=== PATIENT | male | born 1940 | race African-American/Black ===

== ENCOUNTER 2017-03-09 06:45 | Emergency (ER) | payer OTHER ==
[~2017-03-09] VITALS: Ht 188 cm; Wt 86.2 kg
[~2017-03-09 06:45] MED LIST: ADULT LOW DOSE81 MG PO; ATENOLOL 25 MG25 M1 PO; BETAPACE PO; CARVEDILOL3.125 MG PO; CARVEDILOL6.25 MG PO; COUMADIN7.5 MG PO; COZAAR; COZAAR 25 MG TA25 MG PO; DOXYCYCLINE 10100 MG PO; FLECAINIDE ACET50 M1 PO; FUROSEMIDE 40 M40 M1 PO; K-DUR10 ME1 PO; MULTIVITAMINS PO; PACERONE 200 M200 M1 PO; POTASSIUM20 PO; SOTALOL120 MG PO; TOPROL XL25 MG PO; UNKNOWN MED PO
[2017-03-09] MEDS ORDERED: COUMADIN 5 MG TA5 M1 PO (07:04)
[2017-03-09 08:24] LABS: HEMATOCRIT 37.1 % (42.0-52.0); HEMOGLOBIN 12.4 gm/dL (14.0-18.0); MCH 28.7 pg (26.0-34.0); MCHC 33.4 g/dL (28.0-37.0); PLATELET COUNT 115 thou/uL (150-400); RBC 4.32 mil/uL (4.50-6.00); RDW 14.4 % (10.5-14.5); WBC 4.9 thou/uL (4.0-11.0)
[2017-03-09 08:35] LABS: CALCIUM 9.3 mg/dL (8.5-10.1); CREATININE 1.3 mg/dL (0.7-1.3); POTASSIUM 4.1 mmol/L (3.5-5.1)
[2017-03-09 08:38] LABS: INR 3.5; PROTIME 34.8 Seconds (9.3-11.4)
[2017-03-09 09:05] LABS: ABSOLUTE NEUTROPHILS 3.7 thou/uL (1.4-8.2)
[2017-03-09 09:56] VITALS: BP 127/64
== END 2017-03-09 10:03 | disposition home or self-care (01) ==
LOC: ER 06:45
PROVIDERS: Emergency Medicine
DX: R04.0 Epistaxis (principal); M19.90 Unspecified osteoarthritis, unspecified site; I48.91 Unspecified atrial fibrillation; G47.30 Sleep apnea, unspecified; Z88.0 Allergy status to penicillin; Z87.891 Personal history of nicotine dependence

== ENCOUNTER 2017-04-02 18:41 | Emergency (ER) | payer OTHER ==
[~2017-04-02] VITALS: Ht 188 cm; Wt 90.3 kg
[~2017-04-02 18:41] MED LIST changes: +COUMADIN 5 MG TA5 M1 PO
[2017-04-02 20:13] VITALS: BP 153/81
== END 2017-04-02 20:13 | disposition home or self-care (01) ==
LOC: ER 18:41
DX: R04.0 Epistaxis (principal); M19.90 Unspecified osteoarthritis, unspecified site; I48.91 Unspecified atrial fibrillation; Z95.0 Presence of cardiac pacemaker; Z87.01 Personal history of pneumonia (recurrent); Z87.891 Personal history of nicotine dependence; Z88.0 Allergy status to penicillin

== ENCOUNTER → 2017-04-11 | Outpatient (CLI) | payer OTHER ==
--- NOTE | ~2017-04-11 | 2DMMODE ---
[facility] [place] [address] 2 D/M-MODE ECHOCARDIOGRAM Name: ANNELISE GREEN Room #: REG [facility]#: [id number] Admission: 04/11/17 Attend Phys: Dat Peterson Discharge: Date of : 38 Date of Service: 04/11/17 1156 Report #: [id number] THIS REPORT FOR: //name// APPROVED REPORT Study performed: 04/11/2017 10:52:21 EXAM: Comprehensive 2D, Doppler, and color-flow Echocardiogram Patient Location: Out-Patient Status: routine BSA: 2.04 HR: 82 bpm BP: 131/75 mmHg Rhythm: NSR Other Information Study Quality: Fair/poor apical window Indications Cardiomyopathy. Hx: pacemaker, TV repair, pericardial stripping. 2D Dimensions LVEF(%): 53.45 (>50%) IVSd: 14.71 (7-11mm) LVDd: 41.17 mm PWd: 14.57 (7-11mm) Ascending Ao: 32.06 (22-36mm) LVDs: 29.96 (25-40mm) Aortic Root: 30.42 mm Gold's LVEF: 53.45 % Aortic Valve AoV Peak Bon.: 0.97 m/s AO Peak Gr.: 3.78 mmHg LVOT Max P.61 mmHg LVOT Max V: 0.64 m/s Mitral Valve E/A Ratio: 1.7 MV Decel. Time: 194.10 ms MV E Max Obn.: 0.77 m/s MV A Bon.: 0.46 m/s MV PHT: 56.29 ms IVRT: 92.27 ms Pulmonary Valve [facility] [address] [address] 2 D/M-MODE ECHOCARDIOGRAM Name: ANNELISE GREEN Room #: [facility]#: [id number] Admission: 04/11/17 Attend Phys: Dat Peterson Discharge: Date of : 38 Date of Service: 04/11/17 1156 Report #: [id number] PV Peak Bon.: 1.44 m/s PV Peak Gr.: 8.32 mmHg Tricuspid Valve TR Peak Bon.: 2.61 m/s RAP Estimate: 10.00 mmHg TR Peak Gr.: 27.20 mmHg PA Pressure: 37.00 mmHg Left Ventricle The left ventricle is normal size. Paradoxical septal motion, possibly related to RV pacing Mild concentric left ventricular hypertrophy. Left ventricular systolic function is normal. LVEF is 50-55%. Right Ventricle Right ventricle is dilated. The right ventricular systolic function is normal. Pacemaker lead is present in the right ventricle. Atria Left atrium is dilated. Right atrium is dilated. Aortic Valve Aortic valve leaflets are mildly thickened. No aortic regurgitation is present. There is no aortic valvular stenosis. Mitral Valve The mitral valve is normal in structure. Moderate mitral regurgitation. Tricuspid Valve Tricuspid annuloplasty ring. Moderate tricuspid regurgitation. Estimated PAP is 35-40mmHg. Pulmonic Valve The pulmonary valve is normal in structure. Mild to moderate pulmonic regurgitation. Great Vessels The aortic root is normal in size. The ascending aorta is normal in size. IVC is normal in size and collapses <50% with inspiration. Pericardium There is no pericardial effusion. <Conclusion> Left ventricular systolic function is normal. [facility] [place] [address] 2 D/M-MODE ECHOCARDIOGRAM Name: ANNELISE GREEN [place] Room #: REG [facility]#: [id number] Admission: 04/11/17 Attend Phys: Dat Peterson Discharge: Date of : 38 Date of Service: 04/11/17 1156 Report #: [id number] LVEF is 50-55%. Paradoxical septal motion, possibly related to RV pacing Right ventricle is dilated. Both atria are dilated. Aortic valve leaflets are mildly thickened. No aortic regurgitation or stenosis The mitral valve is normal in structure. Moderate mitral regurgitation. Moderate tricuspid regurgitation. Estimated pulmonary artery pressure of 35-40mmHg. There is no pericardial effusion. <ELECTRONICALLY SIGNED> By: Michele Abraham MD, [facility] 04/11/17 1156 1156 1156 Michele Abraham MD, FACC /INF
== END ==
LOC: CV 08:55
DX: I08.1 Rheumatic disorders of both mitral and tricuspid valves (principal); I42.9 Cardiomyopathy, unspecified; Z95.0 Presence of cardiac pacemaker

== ENCOUNTER → 2018-07-12 | Outpatient (CLI) | payer OTHER ==
--- NOTE | 2018-07-12 14:26 | 2DMMODE ---
[facility] [employer] [place] [address] 2 D/M-MODE ECHOCARDIOGRAM Name: ANNELISE GREEN Room #: REG [facility]#: [id number] ������������� Admission: 07/12/18 ������������� Attend Phys: Dat Peterson Discharge: ��� ������������� ��� Date of : 38 Date of Service: 07/12/18 1425 �� Report #: [id number] �������� ��������������������������������������������[id number] THIS REPORT FOR: //name// APPROVED REPORT Study performed: 07/12/2018 13:26:29 EXAM: Comprehensive 2D, Doppler, and color-flow Echocardiogram Patient Location: Echo lab Status: routine BSA: 2.06 HR: 78 bpm BP: 138/60 mmHg Other Information Study Quality: Adequate Technically limited study due to off axis apical window. Indications Atrial Fibrillation Pacemaker SSS, TV repair, hx pericardial stripping 2D Dimensions RVDd: 44.04 mm IVSd: 8.19 (7-11mm) LVOT Diam: 20.68 (18-24mm) LVDd: 49.12 mm PWd: 10.13 (7-11mm) Ascending Ao: 30.21 (22-36mm) LVDs: 36.77 (25-40mm) Aortic Root: 30.06 mm IVC: 24.00 mm Volumes Left Atrial Volume (Systole) Single Plane 4CH: 79.59 mL Single Plane 2CH: 57.64 mL LA ESV Index: 39.00 mL/m2 Aortic Valve AoV Peak Bon.: 0.89 m/s AO Peak Gr.: 3.15 mmHg LVOT Max P.07 mmHg LVOT Max V: 0.52 m/s PRABHU Vmax: 1.95 cm2 Mitral Valve [facility] [place] [address] [place] [address] 2 D/M-MODE ECHOCARDIOGRAM Name: ANNELISE GREEN Room #: REG [facility]#: [id number] ������������� Admission: 07/12/18 ������������� Attend Phys: Dat Peterson Discharge: ��� ������������� ��� Date of : 38 Date of Service: 07/12/18 1425 �� Report #: [id number] �������� ��������������������������������������������[id number] MV Decel. Time: 205.49 ms MV E Max Bon.: 0.91 m/s IVRT: 119.95 ms Pulmonary Valve PV Peak Bon.: 1.31 m/s PV Peak Gr.: 6.89 mmHg Tricuspid Valve TR Peak Bon.: 2.59 m/s RAP Estimate: 10.00 mmHg TR Peak Gr.: 26.86 mmHg PA Pressure: 37.00 mmHg Left Ventricle The left ventricle is normal size. There is normal left ventricular wall thickness. Left ventricular systolic function is borderline. LVEF is 50-55%. This study is not technically sufficient to allow evaluation of the LV diastolic function. Right Ventricle Right ventricle is mildly dilated. Pacemaker lead is present in the right ventricle. Atria Left atrium is mildly dilated. Right atrium is moderately dilated. Aortic Valve The aortic valve is normal in structure. No aortic regurgitation is present. There is no aortic valvular stenosis. Mitral Valve The mitral valve is normal in structure. Moderate mitral regurgitation. No evidence of mitral valve stenosis. Tricuspid Valve The tricuspid valve is normal in structure. Moderate to severe tricuspid regurgitation. PAP is estimated at 37 mmHg. Pulmonic Valve The pulmonary valve is normal in structure. Mild to moderate pulmonic regurgitation. Great Vessels The aortic root is normal in size. IVC is dilated and collapses >50% with inspiration. [facility] [employer] [place] [address] 2 D/M-MODE ECHOCARDIOGRAM Name: ANNELISE GREEN [place] Room #: [facility]#: [id number] ������������� Admission: 07/12/18 ������������� Attend Phys: Dat Peterson Discharge: ��� ������������� ��� Date of : 38 Date of Service: 07/12/181424 �� Report #: [id number] �������� ��������������������������������������������[id number] Pericardium There is no pericardial effusion. <Conclusion> The left ventricle is normal size. There is normal left ventricular wall thickness. Left ventricular systolic function is borderline. Right ventricle is mildly dilated. Left atrium is mildly dilated. Right atrium is moderately dilated. Pacemaker lead is present in the right ventricle. The aortic valve is normal in structure. Moderate mitral regurgitation. Moderate to severe tricuspid regurgitation. PAP is estimated at 37 mmHg. ��������������������������������������������� <ELECTRONICALLY SIGNED> ���������������������������������������� By: Gary Sow MD ��������������������������������������������� 07/12/18 [phone] 24 Gary Sow MD /PRINCE
== END ==
LOC: CV 13:10
DX: I08.8 Other rheumatic multiple valve diseases (principal); I49.5 Sick sinus syndrome; I48.0 Paroxysmal atrial fibrillation; Z95.0 Presence of cardiac pacemaker

== ENCOUNTER → 2019-01-21 | Outpatient (CLI) | payer OTHER ==
[~2019-01-21] MED LIST changes: +ELIQUIS5 M1 PO
== END ==
LOC: CAT 12:57
DX: R26.81 Unsteadiness on feet (principal); I48.20 Chronic atrial fibrillation, unspecified

== ENCOUNTER → 2019-07-18 | Outpatient (CLI) | payer OTHER ==
[~2019-07-18] MED LIST changes: +MELOXICAM7.5 MG PO; +REMERON15 M2 PO; +TYLENOL325 MG PO; +XARELTO20 MG PO
== END ==
LOC: EDBD 12:57 → SJCVC 12:57
PROVIDERS: ATTEND Internal Medicine Cardiovascular Disease
DX: R94.31 Abnormal electrocardiogram [ECG] [EKG] (principal); I48.91 Unspecified atrial fibrillation; I48.92 Unspecified atrial flutter; I44.30 Unspecified atrioventricular block; I49.5 Sick sinus syndrome; I31.1 Chronic constrictive pericarditis; Z95.0 Presence of cardiac pacemaker; Z79.899 Other long term (current) drug therapy; Z87.891 Personal history of nicotine dependence

== ENCOUNTER → 2019-07-29 | Outpatient (CLI) | payer OTHER ==
[~2019-07-29] MED LIST changes: -MELOXICAM7.5 MG PO; -REMERON15 M2 PO; -TYLENOL325 MG PO
[2019-07-29 10:22] LABS: HEMATOCRIT 40.9 % (42.0-52.0); HEMOGLOBIN 13.6 gm/dL (14.0-18.0); MCHC 33.2 g/dL (28.0-37.0); MCV 87.4 fL (80.0-100.0); PLATELET COUNT 102 thou/uL (150-400); RBC 4.67 mil/uL (4.50-6.00); RDW 15.2 % (10.5-14.5); WBC 3.7 thou/uL (4.0-11.0)
[2019-07-29 10:34] LABS: ALBUMIN 3.6 g/dL (3.4-5.0); CALCIUM 8.8 mg/dL (8.5-10.1); CREATININE 1.5 mg/dL (0.7-1.3); POTASSIUM 4.5 mmol/L (3.5-5.1); TOTAL PROTEIN 6.9 g/dL (6.4-8.2)
[2019-07-29 10:51] LABS: ABSOLUTE NEUTROPHILS 2.3 thou/uL (1.4-8.2); ANISOCYTOSIS 1+; OVALOCYTES FEW
== END ==
LOC: CAT 09:17 → EDBD 09:17 → CAT 10:45
PROVIDERS: ATTEND Internal Medicine Cardiovascular Disease
DX: Z01.818 Encounter for other preprocedural examination (principal); I51.7 Cardiomegaly; I25.10 Atherosclerotic heart disease of native coronary artery without angina pectoris; J98.4 Other disorders of lung; M89.38 Hypertrophy of bone, other site; I48.91 Unspecified atrial fibrillation

== ENCOUNTER → 2019-07-30 | Outpatient (CLI) | payer OTHER ==
[~2019-07-30] VITALS: Ht 188 cm; Wt 85.3 kg
[2019-07-30 07:10] VITALS: BP 126/84
--- NOTE | 2019-07-30 08:33 | TEE ---
[facility] [place] [address] TRANSESOPHAGEAL ECHOCARDIOGRAM Name: ANNELISE GREEN Room #: REG [facility]#: [id number] Admission: 07/30/19 Attend Phys: Dat Peterson MD Discharge: Date of : 38 Report #: [id number] THIS REPORT FOR: cc: Kishor Hobson MD, Stany A. MD Lundgren, Craig H. MD [facility] ~ APPROVED REPORT Study performed: 07/30/2019 07:41:27 EXAM: Transesophageal Echocardiogram Patient Location: Out-Patient Status: routine BSA: 2.10 HR: 83 bpm BP: 126/81 mmHg Rhythm: Pacemaker Other Information Study Quality: Adequate Indications Pre-Ablation. Hx: Afib, SSS, pacemaker, pericardial stripping, TV repair. Echo Enhancing Agent Indication: Rule out Shunt Agent(s) / Amount(s) Used: Agitated Saline 10 cc Procedure After obtaining informed consent, patient underwent transesophageal echo in the [employer]. Type of Sedation : Conscious Sedation Sedation was administered by MARIO Sweet. Sedation was achieved intravenously with: Versed (3) Fentanyl (100) Transesophageal probe was inserted and advanced into esophagus without difficulty by Michele Abraham MD. The ANDREW was performed without complications. Throughout the procedure, the blood pressure, pulse oximetry, cardiac rhythm, and rate were monitored. The patient tolerated the procedure without adverse effects. Recovery from conscious sedation was uneventful and vital signs were stable. [facility] [address] [place] [address] TRANSESOPHAGEAL ECHOCARDIOGRAM Name: ANNELISE GREEN Room #: REG [facility]#: [id number] Admission: 07/30/19 Attend Phys: Dat Peterson Discharge: Date of : 38 Report #: [id number] Left Ventricle The left ventricle is normal size. There is normal left ventricular wall thickness. Left ventricular systolic function is mild to moderately decreased. LVEF is 40-45%. Right Ventricle The right ventricle is normal size. The right ventricular systolic function is normal. Atria Left atrium is dilated. Left atrial appendage appears ligated. No shunting noted by contrast bubble injection. Right atrium is dilated. Aortic Valve The aortic valve is normal in structure. No aortic regurgitation is present. There is no aortic valvular stenosis. Mitral Valve Failure of the mitral leaflets to coapt properly. Moderately severe to severe mitral insufficiency No evidence of mitral valve stenosis. Tricuspid Valve Tricuspid annuloplasty ring noted. Moderate tricuspid regurgitation. Pulmonic Valve The pulmonary valve is normal in structure. Mild pulmonic regurgitation. Great Vessels The aortic root is normal in size. The ascending aorta is normal in size. IVC is normal in size and collapses >50% with inspiration. Pericardium There is no pericardial effusion. Critical Notification Physician Notified <Conclusion> Left ventricular systolic function is mild to moderately decreased. [place] [address] [address] TRANSESOPHAGEAL ECHOCARDIOGRAM Name: ANNELISE GREEN [id number] Admission: 07/30/19 Attend Phys: Dat Pedroza Couchonnal Discharge: Date of : 38 Report #: [id number] LVEF is 40-45%. Discordant septal motion vs septal "bounce" Both atria are dilated. Left atrial appendage appears ligated. No shunting noted by contrast bubble injection. Tricuspid annuloplasty ring. Moderate tricuspid insufficiency The aortic valve is normal in structure. No aortic regurgitation or stensosis Failure of the mitral leaflets to coapt properly. Moderately severe to severe mitral insufficiency There is no pericardial effusion. Mild aortic atherosclerosis, no aneurysm <ELECTRONICALLY SIGNED> By: Michele Abraham MD, [facility] 07/30/19831 1 1 Michele Abraham MD, [facility] /INF
== END | disposition home or self-care (01) ==
LOC: EDBD 06:30 → CATH 06:30
PROVIDERS: ATTEND Internal Medicine Cardiovascular Disease
DX: I48.91 Unspecified atrial fibrillation (principal); I08.1 Rheumatic disorders of both mitral and tricuspid valves; I70.0 Atherosclerosis of aorta; M19.90 Unspecified osteoarthritis, unspecified site; Z98.890 Other specified postprocedural states; Z11.59 Encounter for screening for other viral diseases; Z79.899 Other long term (current) drug therapy; Z95.0 Presence of cardiac pacemaker; Z86.73 Personal history of transient ischemic attack (TIA), and cerebral infarction without residual deficits; Z95.1 Presence of aortocoronary bypass graft; Z88.0 Allergy status to penicillin

== ENCOUNTER 2019-08-01 06:38 | Observation (INO) | payer OTHER ==
[2019-08-01] VITALS (10 sets, daily range): BP systolic 127–164; BP diastolic 87–105
[~2019-08-01] VITALS: Ht 188 cm; Wt 54.4 kg
[~2019-08-01 06:38] MED LIST changes: -XARELTO20 MG PO
[2019-08-01] MEDS ORDERED: XARELTO20 MG PO (07:34)
[2019-08-01 08:11] LABS: APTT 34.9 Seconds (24.5-32.8); INR 1.3; PROTIME 13.1 Seconds (9.3-11.4)
--- NOTE | 2019-08-01 20:39 | NUR ---
PT. ARRIVED AT FLOOR CLOSE TO 1400; ALERT; DROWSY; R. GROIN AREA C/D/I; NO ORDERS ON PLACED; SBP BETWEEN 150-160s; NO C/O PAIN; EDUCATED ABOUT BED REST; [facility]; LATER DURING THE AFTERNOON PT. AOX4; EDUCATED ABOUT CALLING BEFORE STANDING FROM BED; [facility]; DR. BARAJAS ROUNDING ON PTs; NOTIFIED ABOUT NO ORDERS; RECEIVED CALL BACK FROM DR. BUENO; ORDERS RECEIVED; THROUGH THE AFTERNOON NO HEMATOMA OVER R. GROIN AREA; AMIODERONE RUNNING; VPACED ON THE MONITOR; ASSESSMENT CHARGED; FOLLOWING POC; PASSED ON REPORT;
[2019-08-02 00:22] VITALS: BP 132/77
[2019-08-02 04:45] VITALS: BP 134/84
--- NOTE | 2019-08-02 05:37 | NUR ---
ASSESSMENTS CHARTED, MEDS GIVEN CHARTED. PATIENT RESTING IN BED DURING SHIFT. OFF BEDREST PRIOR TO SHIFT CHANGE. PATIENT HAD AFIB ABLATION DURING DAY. PATIENT A PACED ON TELEMETRY IN THE 'S. ELSA WAS DC'D AT 2200. PATIENT USING URINAL DURING SHIFT. RIGHT GROIN SITE CLEAN, DRY INTACT AND SOFT. DENIES PAIN. FALL PRECAUTIONS IN PLACE DURNG SHIFT. PATIENT ON AMIODIRONE DRIP DURING SHIFT.
[2019-08-02 07:35] VITALS: BP 143/91
[2019-08-02] MEDS ORDERED: PACERONE 200 M200 M1 PO (07:49)
[2019-08-02 09:09] VITALS: BP 143/91
[2019-08-02 10:26] VITALS: BP 143/91
--- NOTE | 2019-08-02 11:13 | NUR ---
ASSESSMENT DOCUMENTED. VSS. APACED ON THE MONITOR. NO PAIN/COMPLAINTS STATED BY THE PT. R GROIN SITE C/D/I. NO HEMATOMA. PT BELONGINGS PACKED AND SENT HOME WITH THE PT. HEART MONITOR AND IV DISCONTINUED. DISCHARGE INSTRUCTIONS AND PRESCRIPTIONS GIVEN TO PT. PT VERBALIZES UNDERSTANDING. PT TAKEN VIA [facility] TO FRONT ENTRANCE WITH NURSING STAFF TO MEET . WILL CONTINUE TO MONITOR.
--- NOTE | 2019-08-21 11:15 | P ---
[facility] [place] [address] PROCEDURE REPORT Name: ANNELISE GREEN Room #: 211-P [facility] David Atwood#: [id number] Admission: 08/01/19 Attend Phys: Dat Peterson MD Discharge: 08/02/19 Date of : [birth year] Report #: [id number] THIS REPORT FOR: cc: Kishor Hobson MD,Dat Munroe MD, MD ~ CC: Dat Hobson DATE OF SERVICE: 08/01/2019 PREOPERATIVE DIAGNOSIS: Atrial fibrillation. POSTOPERATIVE DIAGNOSIS: Atrial fibrillation. HISTORY OF PRESENT ILLNESS: The patient is a 77-year-old with a history of recurrent atrial fibrillation, status post pacemaker implantation, status post prior tricuspid valve repair and pericardial stripping, here for AFib ablation. PROCEDURES PERFORMED: 1. Atrial fibrillation/ablation, CPT code 40140. 2. 3D mapping, CPT code 91010. 3. Intracardiac echo, CPT code 04737. 4. Focal ablation, CPT code 71717. 5. Preprocedure pacemaker reprogramming, CPT code 25259. 6. Postprocedure pacemaker reprogramming, CPT code 36635. ANESTHESIA: The patient underwent general anesthesia with no anesthesia related complications. DESCRIPTION OF PROCEDURE: The patient underwent informed consent. We discussed the details of the procedure including the risks, which include but not limited to bleeding, vascular damage, stroke, [place], damage to the citizen [place] conduction system. He understood these risks and is willing to proceed. The patient was brought to the EP laboratory in fasting and sedated state, prepped and draped in a sterile fashion. Right femoral vein, I placed an 8, 9 and 7-Jordanian short sheath using the modified Seldinger technique. Next, prior to initiation of the procedure, the pacemaker was reprogrammed. At baseline, the patient was in atrial fibrillation with ventricular pacing. Next, the patient was systemically heparinized and a transseptal was performed using an SL1 sheath and a [place] needle. Transseptal was straightforward. I entered the left atrium and created a detailed 3D voltage map of the left atrium using CartoSound and the Lasso catheter. Next, using cryoballoon, all 4 of the pulmonary veins were isolated. Cardioversion was performed and a voltage map showed that we had isolated all 4 pulmonary veins. Next, I performed posterior [facility] [address] [place] [address] PROCEDURE REPORT Name: ANNELISE GREEN Room #: 211-P [facility] David [place]#: [id number] Admission: 08/01/19 Attend Phys: Dat Peterson MD Discharge: 08/02/19 Date of : [birth year]/40 Report #: [id number] wall isolation of the left atrium using the cryoballoon as well. A voltage map was created and showed that we had also achieved posterior wall isolation of the left atrium as well. The patient did have induction of an atrial flutter that we attempted to map, but this terminated and I attempted to re-induce this which resulted in recurrent atrial fibrillation and the patient underwent a repeat cardioversion, which restored sinus rhythm. As such, we had isolated all pulmonary veins and also created posterior wall isolation. As such, the procedure was concluded. Using intracardiac ultrasound, I verified there was no pericardial effusion. Once the ACT was within acceptable range, catheters and sheaths were pulled and hemostasis was obtained. The patient awoke neurologically and hemodynamically intact. Post-ablation, the pacemaker was re-interrogated and programmed back to its nominal settings. CONCLUSIONS: 1. Successful AFib ablation with isolation of the pulmonary veins. 2. Successful posterior wall isolation with creation of a roofline <ELECTRONICALLY SIGNED> By: Dat Peterson MD 08/21/19 1115 1611 1945 Dat Peterson MD /nt
== END 2019-08-02 10:42 | disposition home or self-care (01) ==
LOC: EDBD → CATH → 2N 14:06 → CATH 14:06 → TBACV 14:06 → 2N 14:07
PROVIDERS: ADMIT Internal Medicine Cardiovascular Disease; ATTEND Internal Medicine Cardiovascular Disease
DX: I48.91 Unspecified atrial fibrillation (principal); I48.92 Unspecified atrial flutter; I11.9 Hypertensive heart disease without heart failure
CPT/HCPCS: 62110; 62900; 65020; 65040; 70005

== ENCOUNTER 2019-09-14 16:18 | Inpatient (IN) | payer OTHER ==
[~2019-09-14] VITALS: Ht 188 cm; Wt 77.7 kg
[~2019-09-14 16:18] MED LIST changes: +XARELTO20 MG PO
[2019-09-14 16:23] VITALS: BP 103/58
[2019-09-14 17:19] LABS: ANION GAP 9 mmol/L (7-16); BUN 18 mg/dL (7-18); CALCIUM 9.5 mg/dL (8.5-10.1); CHLORIDE 101 mmol/L (98-107); CO2 24 mmol/L (21-32); CREATININE 1.6 mg/dL (0.7-1.3); GLUCOSE 122 mg/dL (74-106); POTASSIUM 4.6 mmol/L (3.5-5.1); SODIUM 134 mmol/L (136-145)
[2019-09-14 17:22] LABS: ABSOLUTE NEUTROPHILS 2.9 thou/uL (1.4-8.2); EOSINOPHILS 1.6 % (0.0-3.0); HEMATOCRIT 41.7 % (42.0-52.0); HEMOGLOBIN 13.4 gm/dL (14.0-18.0); MCH 28.5 pg (26.0-34.0); MCHC 32.1 g/dL (28.0-37.0); MCV 88.7 fL (80.0-100.0); MONOCYTES 11.3 % (1.0-8.0); PLATELET COUNT 100 thou/uL (150-400); POLYS 63.1 % (36.0-66.0); RDW 15.9 % (10.5-14.5); WBC 4.6 thou/uL (4.0-11.0)
[2019-09-14 17:28] LABS: TROPONIN-I <0.06 ng/mL (<0.06)
[2019-09-14] MEDS ORDERED: REMERON15 M2 PO (18:11)
[2019-09-14] MEDS ORDERED: MELOXICAM7.5 MG PO (18:12)
[2019-09-14 18:53] VITALS: BP 112/82
[2019-09-14 20:27] VITALS: BP 104/71
[2019-09-15] VITALS (7 sets, daily range): BP systolic 113–139; BP diastolic 54–92
--- NOTE | 2019-09-15 03:05 | NUR ---
-PATIENT ARRIVED PER W/C. IS ALERT X 4. SKIN WARM AND DRY. RESP EVEN AND UNLABORED. GETS VERY SOA WHEN HE TALKS AND ON ACTIVITY. 02 ON 3LNC. VS STABLE. TELE- SHOW V-PACED. HAS A DRY COUGH. [place]ART [place] JUL[place] 22 [place] [facility] ALSO NHAS A PACEMAKER. IS A CC TELE PATIENT. DENIES ANY CHEST PAIN. NO SKIN ISSUES. PP 03/23. HAS A RIGHT FA SL. CXR IS NEGATIVE. DISCUSSED CARE WITH LUISANA DAUGHTER. USES A CANE BUT IS VERY WEAK ON AMBULATING TO BATHROOMJ. REMINDED FOR HIM TO CALL FOR HELP IS A FALL RISK. CONT PLAN OF CARE.
[2019-09-15 04:24] LABS: HEMATOCRIT 43.1 % (42.0-52.0); HEMOGLOBIN 14.1 gm/dL (14.0-18.0); MCHC 32.7 g/dL (28.0-37.0); MCV 88.6 fL (80.0-100.0); RBC 4.87 mil/uL (4.50-6.00); RDW 15.5 % (10.5-14.5); WBC 5.6 thou/uL (4.0-11.0)
[2019-09-15 04:35] LABS: ANION GAP 10 mmol/L (7-16); BUN 20 mg/dL (7-18); CHLORIDE 97 mmol/L (98-107); CO2 23 mmol/L (21-32); CREATININE 1.8 mg/dL (0.7-1.3); GLUCOSE 139 mg/dL (74-106); MAGNESIUM 1.9 mg/dL (1.8-2.4); POTASSIUM 5.4 mmol/L (3.5-5.1); SODIUM 130 mmol/L (136-145); TROPONIN-I <0.06 ng/mL (<0.06)
--- NOTE | 2019-09-15 11:52 | NUR ---
ASSUMED CARE APPROX 0700. PT ALERT AND ORIENTED X4. ASSESSMENTS CHARTED AND VSS. PT AFEBRILE. PT DENIES ACUTE PAIN. PT DENIES CHEST PAIN. ON ROOM AIR W/O SIGNS OF DISTRESS NOTED. COVID RESULTS PENDING. PT V-PACED ON TELE MONITOR. PT SLOWLY PROGRESSING TOWARDS PLAN OF CARE GOALS. WILL CONTINUE TO MONITOR.
--- NOTE | 2019-09-15 13:55 | NUR ---
PT COVID RESULTS NEGATIVE. DR. LOWE NOTIFIED. ORDERS GIVEN TO TX PT TO CCU. PER JEAN-PAUL ROCA: OK TO D/C ISOLATION.
--- NOTE | 2019-09-15 18:29 | NUR ---
ARRIVED TO UNIT AT APPROX 181. PT ALERT AND ORIENTED. VSS. UP SBA WITH CANE TOLERATING WELL. PT C/O SOB WITH EXERTION. O2 SATS WNL ON ROOM AIR. PT STATES FEELS BETTER OVERALL TODAY. TELE ON. STRIP PRINTED AND DOCUMENTED. REFER TO CHART. PT SITTING IN BED COMFORTABLY. DENIES NEEDS. WILL CONT TO MONITOR AND FOLLOW POC.
--- NOTE | 2019-09-16 02:57 | NUR ---
A/O X 4.DENIES PAIN AND SOB.VOIDS PER URINAL.MONITOR SHOWS V PACED.DENIES NEEDS AT THIS TIME.POC CONTINUED.
[2019-09-16 07:44] LABS: HEMATOCRIT 38.6 % (42.0-52.0); HEMOGLOBIN 12.6 gm/dL (14.0-18.0); MCH 28.7 pg (26.0-34.0); MCHC 32.6 g/dL (28.0-37.0); RBC 4.39 mil/uL (4.50-6.00); RDW 15.3 % (10.5-14.5)
[2019-09-16 07:50] LABS: CALCIUM 9.1 mg/dL (8.5-10.1); CREATININE 1.3 mg/dL (0.7-1.3); POTASSIUM 4.2 mmol/L (3.5-5.1)
--- NOTE | 2019-09-16 07:58 | EKG ---
[facility] [place] [address] ELECTROCARDIOGRAM REPORT Name: ANNELISE GREEN Room #: 212- ADM IN M.R.#: [id number] Admission: 09/14/19 Attend Phys: Ryan French MD Discharge: Date of : [birth year]40 Report #: [id number] THIS REPORT FOR: cc: Kishor Hobson MD, Stany A. MD Lundgren,Michele Samuels MD [facility] ~ THIS REPORT FOR: //name// [facility] ED Test Date: 2019-09-14 Test Time: 16:45:45 Pat Name: ANNELISE GREEN Department: Room: [facility] Gender: M [employer] P[employer] Supervisor: : 1941-09-25 Requested By: Marcel Mccall Order Number: [id number] MD: Michele Abraham Measurements Intervals Jordan Rate: 81 P: [place]: QRS: -77 QRSD: 179 T: 114 QT: 466 QTc: 541 Interpretive Statements Ventricular pacing Compared to ECG 10/03/2018 23:38:59 Atrial-paced complex(es) no longer present Ventricular pacing is now present Electronically Signed On 09-16-2019 7:58:18 CDT by Michele Abraham [email or web address] <ELECTRONICALLY SIGNED> By: Michele Abraham MD, [facility] 09/16/19 0758 1645 1645 Michele Abraham MD, FAC /EPI
[2019-09-16 08:00] VITALS: BP 132/77
[2019-09-16 09:15] VITALS: BP 132/77
--- NOTE | 2019-09-16 09:44 | NUR ---
WOUND CONSULT; ASSESSMENT DETERMINED THERE ARE NO WOUNDS. PATIENT IS ALERT AND ORIENTED. COMMUNICATES WELL. HE CAN AMBULATE. NO SKIN BREAKDOWN. RECOMMENDATIONS; NO NEED TO FOLLOW THIS PATIENT, RECONSULT IF NEEDED
--- NOTE | 2019-09-16 11:01 | 2DMMODE ---
[facility] [place] [address] 2 D/M-MODE ECHOCARDIOGRAM Name: ANNELISE GREEN Room #: 212-P ADM IN M.R.#: [id number] Admission: 09/14/19 Attend Phys: Ryan French MD Discharge: Date of : [birth year]/40 Report #: [id number] THIS REPORT FOR: cc: Kishor Hobson MD, Stany A. MD Lammoglia, Francisco J. MD ~ APPROVED REPORT Study performed: 09/16/2019 10:16:23 EXAM: Limited 2D, Doppler, and color-flow Echocardiogram Patient Location: Bedside Room #: 212 Status: routine BSA: 2.02 HR: 83 bpm BP: 132/77 mmHg Other Information Study Quality: Adequate Indications BUI, Chest pressure, Afib. Hx: TV repair, pericadial stripping, pacemaker. (ANDREW done 07/30/2019) Tricuspid Valve TR Peak Bon.: 2.75 m/s RAP Estimate: 15.00 mmHg TR Peak Gr.: 30.34 mmHg PA Pressure: 45.00 mmHg Left Ventricle The left ventricle is normal size. There is normal left ventricular wall thickness. Left ventricular systolic function is mild to moderately decreased. LVEF is 40-45%. Right Ventricle The right ventricle is normal size. Pacemaker lead is present in the right ventricle. Atria Left atrium is dilated. Right atrium is dilated. Aortic Valve The aortic valve is normal in structure. Trace aortic regurgitation. [facility] [address] [place] [address] 2 D/M-MODE ECHOCARDIOGRAM Name: ANNELISE GREEN Room #: 212-P ADM IN M.R.#: [id number] Admission: 09/14/19 Attend Phys: Ryan French, Discharge: Date of : [birth year]/40 Report #: [id number] There is no aortic valvular stenosis. Mitral Valve The mitral valve is normal in structure. Severe mitral regurgitation with an eccentric jet Tricuspid Valve The tricuspid valve is normal in structure. Severe tricuspid regurgitation. Estimated PAP is 45mmHg. Great Vessels IVC is dilated and collapses <50% with inspiration. Pericardium There is no pericardial effusion. <Conclusion> The left ventricle is normal size. LVEF is 40-45%. Pacemaker lead is present in the right ventricle. Left atrium is dilated. Right atrium is dilated. The aortic valve is normal in structure. Trace aortic regurgitation. The mitral valve is normal in structure. Severe mitral regurgitation with an eccentric jet The tricuspid valve is normal in structure. Severe tricuspid regurgitation. Estimated PAP is 45mmHg. There is no pericardial effusion. <ELECTRONICALLY SIGNED> By: Eloy Escobar MD 09/16/19 1101 110 1101 Eloy Escobar MD /INF
[2019-09-16 12:15] VITALS: BP 132/77
[2019-09-16 19:37] VITALS: BP 129/85
[2019-09-17 04:35] VITALS: BP 133/86
[2019-09-17 06:20] LABS: HEMATOCRIT 38.6 % (42.0-52.0); HEMOGLOBIN 12.6 gm/dL (14.0-18.0); MCH 28.6 pg (26.0-34.0); MCHC 32.6 g/dL (28.0-37.0); MCV 87.9 fL (80.0-100.0); RBC 4.39 mil/uL (4.50-6.00); RDW 15.4 % (10.5-14.5); WBC 8.3 thou/uL (4.0-11.0)
--- NOTE | 2019-09-17 07:06 | NUR ---
ALERT,FORGETFUL.DENIES PAIN AND SOB.UP TO THE BATHROOM WITH CAMPOS.MONITOR SHOWS A PACED.POC CONTINUED.
[2019-09-17 07:10] VITALS: BP 123/79
[2019-09-17 07:11] LABS: CALCIUM 8.5 mg/dL (8.5-10.1); CREATININE 1.4 mg/dL (0.7-1.3); MAGNESIUM 1.8 mg/dL (1.8-2.4); POTASSIUM 4.2 mmol/L (3.5-5.1)
[2019-09-17 08:00] VITALS: BP 123/79
[2019-09-17] MEDS ORDERED: PACERONE 200 M200 M1 PO (10:07)
[2019-09-17] MEDS ORDERED: TYLENOL325 MG PO (10:38)
[2019-09-17 10:54] VITALS: BP 123/79
--- NOTE | 2019-09-17 12:17 | NUR ---
PT CARE ASSUMED AT 0700. ASSESSMENT CHARTED. MEDICATION CHARTED. CARDIAC STATED THAT PT IS READY FOR DISCHARGE. PT TO DISCHARGE TO HOME. IV D/C'D. TELEMETRY D/C'D.
--- NOTE | 2019-09-19 15:34 | P ---
[facility] [place] [address] PROCEDURE REPORT Name: ANNELISE GREEN Room #: 212-P [facility] .R.#: [id number] Admission: 09/14/19 Attend Phys: Ryan French MD Discharge: 09/17/19 Date of : [birth year] Report #: [id number] THIS REPORT FOR: cc: Kishor Hobson MD,Dat Munroe MD, MD ~ CC: Ryan Hobson CARDIOVERSION PREOPERATIVE DIAGNOSIS: Atrial fibrillation. POSTOPERATIVE DIAGNOSIS: Atrial fibrillation. PROCEDURES PERFORMED: 1. Cardioversion, CPT code 35730. 2. Pacemaker reprogramming, CPT code 70030. DESCRIPTION OF PROCEDURE: The patient underwent informed consent. He was prepped and draped in standard fashion. He was sedated by the Anesthesiology Service. Once sedated, he underwent a 200-joule synchronized cardioversion with jewish of sinus rhythm. His device was interrogated, found to be functioning normally and atrial ATP was disabled. CONCLUSION: Successful cardioversion and pacemaker reprogramming. <ELECTRONICALLY SIGNED> By: Dat Peterson MD 09/19/19 [id number] Dat Peterson MD /nt
== END 2019-09-17 13:23 | disposition home or self-care (01) | DRG 308 ==
LOC: ER 16:18 → EROBS 18:47 → 3W 18:47 → 2N 18:47 → 3W 20:31 → 2N 09-15 18:07
PROVIDERS: Emergency Medicine; Nurse Practitioner; Nurse Practitioner Family; ADMIT Internal Medicine; ATTEND Internal Medicine
PROC: 4B02XSZ Measurement of Cardiac Pacemaker, External Approach (ICD-10-PCS; principal; 2019-09-16)
PROC: 5A2204Z Restoration of Cardiac Rhythm, Single (ICD-10-PCS; 2019-09-17)
DX: I48.92 Unspecified atrial flutter (principal); J96.01 Acute respiratory failure with hypoxia; N17.0 Acute kidney failure with tubular necrosis; I48.91 Unspecified atrial fibrillation; M19.90 Unspecified osteoarthritis, unspecified site; G47.33 Obstructive sleep apnea (adult) (pediatric); I49.5 Sick sinus syndrome; N18.3 Chronic kidney disease, stage 3 (moderate); E87.5 Hyperkalemia; R63.4 Abnormal weight loss; M62.84 Sarcopenia; K59.00 Constipation, unspecified; N40.1 Benign prostatic hyperplasia with lower urinary tract symptoms; N39.498 Other specified urinary incontinence; Z20.828 Contact with and (suspected) exposure to other viral communicable diseases; Z68.22 Body mass index [BMI] 22.0-22.9, adult; Z88.8 Allergy status to other drugs, medicaments and biological substances; Z87.891 Personal history of nicotine dependence; Z95.0 Presence of cardiac pacemaker; Z87.01 Personal history of pneumonia (recurrent)
CPT/HCPCS: 10081; 10879; 62110; 62900

== ENCOUNTER → 2019-11-07 | Outpatient (CLI) | payer OTHER ==
[~2019-11-07] MED LIST changes: +MELOXICAM7.5 MG PO; +REMERON15 M2 PO; +TYLENOL325 MG PO
== END ==
LOC: SJCVC 14:48
PROVIDERS: ATTEND Internal Medicine Cardiovascular Disease
DX: Z45.018 Encounter for adjustment and management of other part of cardiac pacemaker (principal); I48.0 Paroxysmal atrial fibrillation; I49.5 Sick sinus syndrome; R94.31 Abnormal electrocardiogram [ECG] [EKG]; I45.19 Other right bundle-branch block; I44.0 Atrioventricular block, first degree; I48.3 Typical atrial flutter; I44.30 Unspecified atrioventricular block; I48.91 Unspecified atrial fibrillation; Z79.899 Other long term (current) drug therapy; Z88.0 Allergy status to penicillin; Z87.891 Personal history of nicotine dependence; Z98.890 Other specified postprocedural states

== ENCOUNTER → 2020-01-01 | Outpatient (CLI) | payer OTHER | LOC: SJCVCIMAG 11:39 | PROVIDERS: ATTEND Internal Medicine Cardiovascular Disease | DX: I08.1 Rheumatic disorders of both mitral and tricuspid valves (principal); I27.20 Pulmonary hypertension, unspecified; I44.0 Atrioventricular block, first degree; R94.31 Abnormal electrocardiogram [ECG] [EKG]; I42.9 Cardiomyopathy, unspecified; I25.10 Atherosclerotic heart disease of native coronary artery without angina pectoris; R53.83 Other fatigue; I48.0 Paroxysmal atrial fibrillation; I49.5 Sick sinus syndrome; R60.9 Edema, unspecified; Z95.0 Presence of cardiac pacemaker; Z79.899 Other long term (current) drug therapy; Z87.891 Personal history of nicotine dependence ==

== ENCOUNTER → 2020-01-15 | Outpatient (CLI) | payer OTHER ==
[~2020-01-15] MED LIST changes: +CENTRUM SILVER1 EAC5 PO; +LASIX 40 MG TAB40 MG PO; +TYLENOL 8 HOUR650 MG PO
== END ==
LOC: SJCVC 10:27
PROVIDERS: ATTEND Internal Medicine
DX: R94.31 Abnormal electrocardiogram [ECG] [EKG] (principal); I50.32 Chronic diastolic (congestive) heart failure; I48.0 Paroxysmal atrial fibrillation; I34.0 Nonrheumatic mitral (valve) insufficiency; I31.1 Chronic constrictive pericarditis; E78.5 Hyperlipidemia, unspecified; Z95.0 Presence of cardiac pacemaker; Z79.899 Other long term (current) drug therapy

== ENCOUNTER → 2020-01-22 | Outpatient (CLI) | payer OTHER ==
[~2020-01-22] MED LIST changes: -CENTRUM SILVER1 EAC5 PO; -LASIX 40 MG TAB40 MG PO; -TYLENOL 8 HOUR650 MG PO
== END ==
LOC: LAB 09:37
PROVIDERS: ATTEND Internal Medicine
DX: Z20.828 Contact with and (suspected) exposure to other viral communicable diseases (principal)

== ENCOUNTER → 2020-01-28 | Outpatient (CLI) | payer OTHER ==
[~2020-01-28] VITALS: Ht 188 cm; Wt 83.9 kg
[~2020-01-28] MED LIST changes: +CENTRUM SILVER1 EAC5 PO; +LASIX 40 MG TAB40 MG PO; +TYLENOL 8 HOUR650 MG PO
[2020-01-28 07:11] VITALS: BP 131/77
--- NOTE | 2020-01-28 07:33 | EKG ---
[facility] [employer] [place] [address] ELECTROCARDIOGRAM REPORT Name: ANNELISE GREEN Room #: REG [facility]#: [id number] Admission: 01/28/20 Attend Phys: Michele Abraham MD, Discharge: Date of : 38 Report #: [id number] THIS REPORT FOR: cc: Kishor Hobson MD, Stany A. MD Santiago, Patrick MD [facility] ~ THIS REPORT FOR: //name// [facility] Test Date: 2020-01-28 Test Time: 07:27:38 Pat Name: ANNELISE GREEN Department: Room: [facility]: Kiln Charger[facility] 1940 Requested By: Michele Abraham Order Number: [id number] MD: Chris Berumen Measurements Intervals [place] Rate: 87 P: [place]: 267 QRS: 68 QRSD: 106 T: 74 QT: 390 QTc: 470 Interpretive Statements Atrial-paced complexes Prolonged [place] interval Abnormal R-wave progression, late transition Borderline T wave abnormalities Baseline wander in lead(s) III Compared to ECG 09/14/2019 16:45:45 First degree AV block now present T-wave abnormality now present Ventricular-paced complex(es) or rhythm no longer present Electronically Signed On 01-28-2020 7:33:44 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
[2020-01-28 07:35] LABS: CALCIUM 9.5 mg/dL (8.5-10.1); CREATININE 1.4 mg/dL (0.7-1.3); POTASSIUM 4.4 mmol/L (3.5-5.1)
--- NOTE | 2020-01-28 13:36 | CATHLAB ---
[facility] [address] [employer] [place] [address] INVASIVE PROCEDURE REPORT Name: ANNELISE GREEN Room #: REG [facility]#: [id number] Admission: 01/28/20 Attend Phys: Michele Abraham MD, Discharge: Date of : 38 Report #: [id number] THIS REPORT FOR: cc: Kishor Hobson MD, Stany A. MD Lundgren, Craig H. MD [facility] ~ APPROVED REPORT Study performed: 01/28/2020 07:48:03 Patient Details Patient Status: Out-Patient Room #: The patient is a 79 year-old male Event Personnel Michele Abraham Bottom Liner, Maykel Roca RN RN, Kamryn Peck RTR Monitor, Josiane Parish Monitor, Cecille Graham RTR, BATTERY CONTAINER INSPECTOR Scrub Procedures Performed Art Access - R femoral artery* William Access - R femoral vein 13903 Initial Mod Sed Same Phys/QHP Gr 752431 90847 Mod Sed Same Phys/QHP Ea 380631 Right and Left Heart Cath w/or w/o Coronarie [id number] [facility] Hemostasis w/ Mynx Indication Pericarditis Procedure Narrative The patient was brought electively to the Cardiac Catheterization Laboratory and was prepped and draped in a sterile manner. The Right Groin^ was infiltrated with 1% Lidocaine subcutaneous anesthesia. A Right Heart Catheterization was performed with a 7 Fr. Ackerman-Nas catheter and pressure were recorded. Cardiac outputs were obtained by the Thermal Dilution method. A PINNACLE 6FR Sheath #[id number] sheath was inserted into the RFA^. Coronary angiography was performed using coronary diagnostic catheters. The right coronary system was accessed and visualized with a JR 4 catheter. The left coronary system was accessed and visualized with a JL 4 catheter. The left ventricle was accessed and visualized with a Pigtail catheter. Left ventricular/Aortic Valve gradient assessed via catheter pullback. Left ventriculogram was performed in PRINGLE projection. Closure device was deployed with a 6 Fr Mynx. The patient tolerated the procedure well and there were no complications associated with the procedure. [address] [address] INVASIVE PROCEDURE REPORT Name: ANNELISE GREEN [place] Room #: [facility]#: [id number] Admission: 01/28/20 Attend Phys: Michele Abraham, Discharge: Date of : 38 Report #: [id number] There was no hematoma. Intraoperative Conscious Sedation Sedation start time: 08:14 Case end Time: 09:04 Fentanyl 50 mcg Versed 1 mg Fluoro Time: 4.28 minutes Dose: DAP 4119.00 cGycm2 404 mGy Contrast Type and Amount: Visipaque 105 ml Coronary Angiography The patient's coronary anatomy is right dominant. Diagnostic Cath Left Main Normal left main LAD Mild proximal and mid LAD plaquing. Two sequential 75% distal LAD stenoses near the apex Circumflex Large, nondominant circumflex. 50% mid circumflex stenosis OM1 Small distally arising marginal branch, angiographically normal Right Coronary Mild 20-30% mid LAD plaquing Left Ventriculography The left ventricle is normal in size with normal contractility. The left ventricular ejection fraction is estimated to be 55-60%. Left ventricular wall motion abnormalities are not present. There is 3+ mitral insufficiency. Densely calcified anterior pericardium. EF 55%. Moderate mitral regurgitation Hemodynamics The right atrial mean pressure is 16 mmHg. The right ventricular pressure is 36/15 mmHg. The pulmonary artery pressure is 40/16 mmHg with a mean of 26 mmHg. The mean pulmonary capillary wedge pressure is 18 mmHg. The aortic pressure is 144/60 mmHg with a mean of 91 mmHg. The left ventricular pressure is 117/11 mmHg with a mean of mmHg. The left ventricular end diastolic pressure is 18 mmHg. There was no gradient across the aortic valve upon pullback. The cardiac output using thermo method is 4.20 L/min. The cardiac index using thermo method is 2.02 L/min/m2. Near equalization of diastolic heart pressures in all cardiac chambers. LVEDP-RVEDP < 5mm. PASP <55mmHg Ventricular discordance Conclusion [facility] [address] [place] [address] INVASIVE PROCEDURE REPORT Name: ANNELISE GREEN [facility] [id number] Admission: 01/28/20 Attend Phys: Michele Abraham, Discharge: Date of : 38 Report #: [id number] 1. Normal global and regional left ventricular systolic function. Dense pericardial calcification 2. Normal left main 3. Mild proximal and mid LAD plaquing. Sequential 75% distal LAD stenoses 4. 40-50% mid circumflex stenosis 5. Mild mid right coronary plaquing 6. Hemodynamics suggestive of pericardial constriction <ELECTRONICALLY SIGNED> By: Michele Abraham MD, FACC 01/28/205 34 34 Michele Abraham MD, FACC /INF
== END | disposition home or self-care (01) ==
LOC: CATH 06:28
PROVIDERS: ATTEND Internal Medicine
DX: I25.10 Atherosclerotic heart disease of native coronary artery without angina pectoris (principal); I48.0 Paroxysmal atrial fibrillation; I48.92 Unspecified atrial flutter; M19.90 Unspecified osteoarthritis, unspecified site; Z98.890 Other specified postprocedural states; Z95.1 Presence of aortocoronary bypass graft; Z79.899 Other long term (current) drug therapy; Z79.01 Long term (current) use of anticoagulants; Z88.0 Allergy status to penicillin

== ENCOUNTER → 2020-01-30 | Outpatient (CLI) | payer OTHER | LOC: SJCVC 13:45 | PROVIDERS: ATTEND Internal Medicine Cardiovascular Disease | DX: I45.10 Unspecified right bundle-branch block (principal); R94.31 Abnormal electrocardiogram [ECG] [EKG]; I31.9 Disease of pericardium, unspecified; I48.0 Paroxysmal atrial fibrillation; I48.92 Unspecified atrial flutter; I44.30 Unspecified atrioventricular block; Z95.0 Presence of cardiac pacemaker ==

== ENCOUNTER → 2020-03-20 | Outpatient (CLI) | payer OTHER | LOC: SJCVC 11:50 → EDBD 11:50 | PROVIDERS: ATTEND Internal Medicine | DX: R94.31 Abnormal electrocardiogram [ECG] [EKG] (principal); I25.10 Atherosclerotic heart disease of native coronary artery without angina pectoris; I50.32 Chronic diastolic (congestive) heart failure; R06.00 Dyspnea, unspecified; I48.0 Paroxysmal atrial fibrillation; I34.0 Nonrheumatic mitral (valve) insufficiency; I31.1 Chronic constrictive pericarditis; E78.5 Hyperlipidemia, unspecified; Z95.0 Presence of cardiac pacemaker; Z98.890 Other specified postprocedural states; Z95.828 Presence of other vascular implants and grafts; Z88.0 Allergy status to penicillin; Z79.899 Other long term (current) drug therapy; Z87.891 Personal history of nicotine dependence; Z86.73 Personal history of transient ischemic attack (TIA), and cerebral infarction without residual deficits ==

== ENCOUNTER 2020-05-03 09:40 | Emergency (ER) | payer OTHER ==
[~2020-05-03] VITALS: Ht 188 cm; Wt 79.4 kg
[2020-05-03] MEDS ORDERED: COQ-10100 MG PO (09:55)
[2020-05-03] MEDS ORDERED: POTASSIUM20 PO (09:55)
[2020-05-03] MEDS ORDERED: VITAMIN B-121000 MCG PO (09:56)
[2020-05-03 11:48] VITALS: BP 101/56
== END 2020-05-03 11:48 | disposition home or self-care (01) ==
LOC: EDBD 09:40 → ER 09:40
DX: M79.604 Pain in right leg (principal); I48.91 Unspecified atrial fibrillation; Z95.0 Presence of cardiac pacemaker; Z79.899 Other long term (current) drug therapy; Z87.891 Personal history of nicotine dependence; Z88.0 Allergy status to penicillin

== ENCOUNTER 2020-07-04 09:40 | Emergency (ER) | payer OTHER ==
[~2020-07-04] VITALS: Ht 188 cm; Wt 82.6 kg
[~2020-07-04 09:40] MED LIST changes: +COQ-10100 MG PO; +VITAMIN B-121000 MCG PO
[2020-07-04 10:34] LABS: ABSOLUTE NEUTROPHILS 3.4 thou/uL (1.4-8.2); EOSINOPHILS 1.2 % (0.0-3.0); HEMATOCRIT 37.3 % (42.0-52.0); HEMOGLOBIN 12.2 gm/dL (14.0-18.0); LYMPHOCYTES 14.1 % (24.0-44.0); MCH 29.5 pg (26.0-34.0); MCHC 32.7 g/dL (28.0-37.0); MCV 90.2 fL (80.0-100.0); MONOCYTES 9.2 % (1.0-8.0); PLATELET COUNT 129 thou/uL (150-400); POLYS 74.5 % (36.0-66.0); RBC 4.13 mil/uL (4.50-6.00); RDW 15.1 % (10.5-14.5); WBC 4.5 thou/uL (4.0-11.0)
[2020-07-04 10:38] LABS: CALCIUM 9.4 mg/dL (8.5-10.1); CREATININE 1.7 mg/dL (0.7-1.3); POTASSIUM 4.7 mmol/L (3.5-5.1)
[2020-07-04 10:41] LABS: INR 1.68; PROTIME 17.9 Seconds (10.5-12.1)
[2020-07-04 10:44] LABS: ALBUMIN 3.6 g/dL (3.4-5.0); TOTAL BILIRUBIN 0.8 mg/dL (0.2-1.0); TOTAL PROTEIN 7.9 g/dL (6.4-8.2)
[2020-07-04 12:17] VITALS: BP 112/67
== END 2020-07-04 12:19 | disposition home or self-care (01) ==
LOC: ER 09:40
PROVIDERS: Emergency Medicine
DX: K06.8 Other specified disorders of gingiva and edentulous alveolar ridge (principal); M19.90 Unspecified osteoarthritis, unspecified site; I48.91 Unspecified atrial fibrillation; Z79.01 Long term (current) use of anticoagulants; Z95.0 Presence of cardiac pacemaker; Z79.899 Other long term (current) drug therapy; Z88.0 Allergy status to penicillin; Z87.891 Personal history of nicotine dependence

== ENCOUNTER → 2020-08-18 | Outpatient (CLI) | payer OTHER | LOC: SJCVC 10:09 | PROVIDERS: ATTEND Internal Medicine Cardiovascular Disease | DX: R94.31 Abnormal electrocardiogram [ECG] [EKG] (principal); I48.0 Paroxysmal atrial fibrillation; I48.92 Unspecified atrial flutter; I49.5 Sick sinus syndrome; I44.1 Atrioventricular block, second degree; I31.9 Disease of pericardium, unspecified; Z95.0 Presence of cardiac pacemaker; Z79.01 Long term (current) use of anticoagulants; Z98.61 Coronary angioplasty status; Z79.899 Other long term (current) drug therapy; Z86.73 Personal history of transient ischemic attack (TIA), and cerebral infarction without residual deficits; Z87.891 Personal history of nicotine dependence; Z88.0 Allergy status to penicillin ==

== ENCOUNTER → 2021-02-23 | Outpatient (CLI) | payer OTHER | LOC: SJCVC 14:13 | PROVIDERS: ATTEND Internal Medicine Cardiovascular Disease | DX: R94.31 Abnormal electrocardiogram [ECG] [EKG] (principal); R07.9 Chest pain, unspecified; I49.5 Sick sinus syndrome; I48.91 Unspecified atrial fibrillation; I31.1 Chronic constrictive pericarditis; I44.1 Atrioventricular block, second degree; Z95.0 Presence of cardiac pacemaker; Z87.891 Personal history of nicotine dependence; Z79.899 Other long term (current) drug therapy; Z86.73 Personal history of transient ischemic attack (TIA), and cerebral infarction without residual deficits; Z88.0 Allergy status to penicillin ==

== ENCOUNTER → 2021-03-11 | Outpatient (CLI) | payer OTHER | LOC: SJCVCIMAG 07:54 | PROVIDERS: ATTEND Internal Medicine Cardiovascular Disease | DX: I48.91 Unspecified atrial fibrillation (principal); I25.10 Atherosclerotic heart disease of native coronary artery without angina pectoris; R07.9 Chest pain, unspecified; E78.5 Hyperlipidemia, unspecified; I31.1 Chronic constrictive pericarditis; Z95.818 Presence of other cardiac implants and grafts; Z95.0 Presence of cardiac pacemaker; Z95.828 Presence of other vascular implants and grafts; Z87.891 Personal history of nicotine dependence; Z88.0 Allergy status to penicillin; Z79.899 Other long term (current) drug therapy ==